=== PATIENT | female | born 1990 | race Caucasian/White ===

== ENCOUNTER 2016-06-22 21:22 | Emergency (ER) | payer SELFPAY ==
[~2016-06-22] VITALS: Ht 162.6 cm; Wt 117.5 kg
[~2016-06-22 21:22] MED LIST: HYDR-3498 PO; IBUP-1542 PO; NITR-58 PO; PREN1TAB49 PO
[2016-06-22 21:29] VITALS: Ht 162.6 cm; Wt 117.5 kg
== END 2016-06-23 02:09 | disposition left against medical advice (07) ==
LOC: FTE 21:22
DX: Z53.21 Procedure and treatment not carried out due to patient leaving prior to being seen by health care provider (principal)

== ENCOUNTER 2016-07-18 18:50 | Outpatient (CLI) | payer BC ==
[~2016-07-18] VITALS: Ht 162.6 cm; Wt 118.1 kg
[2016-07-18 19:44] VITALS: Ht 162.6 cm; Wt 118.1 kg
[2016-07-18 19:45] VITALS: BP 109/68; PULSE 84; RESP 18
--- NOTE | 2016-07-18 20:53 | PN ---
Date/Time of Note Date/Time of Note DATE: 07/18/16 TIME: 20:45 OB Subjective Subjective Subjective 26 yo P2010 @ 20.4wks c/o right sided abdominal pain,which started after playing with her kids 3 days ago and falling into a door. She has no bleeding, no LOF, good FM OB Objective Objective Objective 109/68, 84, 18, 97.8 Abdomen- gravid, n/t Ext- no edema pos FH no ctx Abdomen: WNL Membranes: Intact Contractions on Admission: None OB Assessment/Plan Other Assessment: likely muscular pain, vs mild ctx will order sono to check placenta and fluid if nml, d/c home tylenol prn NANDINI ROMERO MD Jul 18, 2016 20:53
--- NOTE | 2016-07-18 21:42 | RADRPT ---
PROCEDURE: US OB. CLINICAL INDICATION: Low ALLAN , pain TECHNIQUE: Transabdominal views of the pelvis are available for review. COMPARISON: 05/18/16 FINDINGS: There is a single intrauterine gestation in a breech position. The heart rate is present at 148 bpm. The placenta is anterior. No evidence of placenta previa or abruption. The MVP measures 7.1 cm. RPTAT: AA IMPRESSION: Normal ALLAN. .Refugio Dempsey MD, MD Date Time Electronically viewed and signed by .Refugio Dempsey MD, MD on 07/18/2016 21:41 .S/
--- NOTE | 2016-07-18 23:47 | TRIAGE ---
OB Triage Datetime Report Generated by CPN: 07/18/2016 23:47 Datetime: 07/18/2016 22:00 Provider Notified: AYALON Datetime: 07/18/2016 21:55 Stage of : OB Triage Datetime: 07/18/2016 21:24 Stage of : OB Triage Datetime: 07/18/2016 21:13 Stage of : OB Triage Datetime: 07/18/2016 20:33 Stage of : OB Triage Labor Evaluation Frequency: 0 Monitor Mode: External Resting Tone [place]: Relaxed Datetime: 07/18/2016 19:35 Stage of : OB Triage Datetime: 07/18/2016 19:13 EGA: 20.4 Arrived By: Ambulatory Arrived From: Home Chief Complaint: S/P abd trauma 3 days ago Contractions: Denies/Absent Rupture of Membranes: Denies Vaginal Bleeding: None Vaginal Discharge: Denies Recent Sexual Intercouse: Denies Abdominal Trauma: Fall Patient Complaints: Other Additional Patient Complaints: Pt states that 3 days ago, her children were playing, did not see h er and closed a door, hitting her in r side of abdomen. Pt states pain started shortly after and fee ls it from low r side of abdomen down to perineum. Pt also states that she had sex earlier that day Provider Notified: GAIL Initial Plan: VS, DOPPLER, TOCO, PLACENTA, ALLAN Datetime: 07/18/2016 19:09 Assessment Type: Triage Maternal Assessment Level of Consciousness: Fully Conscious Headache: Denies Blurred Vision: No Respiratory Effort: Unlabored Breath Sounds, Left: Clear and Equal Breath Sounds, Right: Clear and Equal Nausea/Vomiting: Denies RUQ Epigastric Pain: Denies Lower Extremities Edema: None Degree: None Upper Extremities Edema: None Degree: None Facial Edema: None Fall Risk Assessment History of Falling: (0) No Secondary Diagnosis: (15) Yes (Annotations: C/S X 2 A1DM 1ST DIET CONTROLLED) Ambulatory Aid: (0) Bedrest/Nurse Assist IV Therapy: (0) No Gait: (0) Normal/Bedrest/Immobile Mental Status: (0) Oriented to Own Ability Fall Score: 15 Fall Risk Score Definition: No Risk: No action required Datetime: 07/18/2016 18:58 Monitor Mode: External Datetime: 07/18/2016 18:57 Stage of : OB Triage Heart Rate Monitor Mode: Doppler (Annotations: X 1 MIN WITH FHTS AUDIBLE FROM 145 TO 172 BTS/MIN) Datetime: 07/18/2016 18:51 Time of Arrival: 07/18/2016 18:45
== END 2016-07-18 22:00 | disposition home or self-care (01) ==
LOC: OBT 18:50 → L-D 18:51 → OBT 22:00
PROVIDERS: ATTEND Obstetrics & Gynecology
DX: O26.892 Other specified pregnancy related conditions, second trimester (principal); R10.9 Unspecified abdominal pain; Z3A.20 20 weeks gestation of pregnancy
CPT/HCPCS: 76815; Z7500; G0463